=== PATIENT | female | born 1955 | race Caucasian/White ===

== ENCOUNTER 2016-12-14 22:30 | Inpatient (IN) | payer MEDICARE, MEDICAID ==
[~2016-12-14] VITALS: Ht 177.8 cm; Wt 66.2 kg
[2016-12-14 23:26] VITALS: BP 114/73
[2016-12-14] MEDS ORDERED: CEFTRIAXONE 1 G in IV DEXTROSE 5% 50 ML IV SCH (23:45)
[2016-12-14] MEDS ORDERED: LORAZEPAM 2 MG/1 ML VIAL IV PRN (23:45)
[2016-12-14] MEDS ORDERED: ZOLPIDEM 5 MG TABLET PO PRN (23:45)
[2016-12-14] MEDS ORDERED: MAGNESIUM HYDROXIDE 30 ML LIQUID UDC PO PRN (23:45)
[2016-12-14] MEDS ORDERED: ONDANSETRON 4 MG/2 ML VIAL IV PRN (23:45)
[2016-12-14] MEDS ORDERED: MORPHINE SULFATE 2 MG/1 ML DISP.SYRIN IV PRN (23:45)
[2016-12-15] MEDS ORDERED: ACETAMINOPHEN 325 MG TABLET ONE (01:37)
[2016-12-15] MEDS ORDERED: CEFTRIAXONE 1 G VIAL ONE (01:45)
[2016-12-15] MEDS: ACETAMINOPHEN 325 MG TABLET PO PRN ×2 (01:54→09:36)
[2016-12-15] MEDS: IV 1/2NS 1000 ML 1,000 ML IV PRN (01:55)
[2016-12-15] MEDS ORDERED: IBUPROFEN 400 MG TABLET PO PRN (03:30)
[2016-12-15] MEDS ORDERED: TRIH2TAB5 PO (03:35)
[2016-12-15] MEDS ORDERED: TRAZ300T2 PO (03:35)
[2016-12-15] MEDS ORDERED: ARIP30TA PO (03:35)
[2016-12-15] MEDS ORDERED: HALO5TAB12 PO (03:35)
[2016-12-15] MEDS ORDERED: DOCU-25 PO (03:35)
[2016-12-15] MEDS ORDERED: PIPERACILLIN/TAZOBACTAM/D5W 50 ML IV ONE (04:25)
[2016-12-15] MEDS: PIPERACILLIN/TAZOBACTAM/D5W 3.375 G in PREMIXED 1 EACH IV SCH ×4 (04:30→21:07)
[2016-12-15 04:57] LABS: EOSINOPHILS % (AUTO) 0.1 % (0.0-7.0); HEMOGLOBIN 9.5 g/dL (12.0-16.0); LYMPHOCYTES # (AUTO) 0.5 K/uL (0.8-4.8); LYMPHOCYTES % (AUTO) 2.4 % (20.5-51.5); MEAN CORPUSCULAR HEMOGLOBIN 28.1 uug (27.0-31.0); MEAN CORPUSCULAR HGB CONC 33 g/dL (32.0-37.0); MEAN CORPUSCULAR VOLUME 85.3 fL (81.0-99.0); MONOCYTES # (AUTO) 1.6 K/uL (0.1-1.30); MONOCYTES % (AUTO) 7.5 % (0.0-11.0); NEUTROPHILS # (AUTO) 18.8 K/uL (1.8-8.9); PLATELET COUNT (AUTO) 258 K/uL (150-450); RED CELL DISTRIBUTION WIDTH 12.5 % (11.5-14.5); WHITE BLOOD COUNT (AUTO) 20.9 K/uL (4.0-11.2)
[2016-12-15 05:21] LABS: THYROID STIMULATING HORMONE 0.685 mIU/mL (0.358-3.740)
[2016-12-15 06:22] VITALS: BP 106/62
[2016-12-15] MEDS: PANTOPRAZOLE SODIUM 40 MG TABLET.DR PO SCH (08:14)
[2016-12-15 08:50] LABS: ALBUMIN 2.3 g/dL (3.4-5.0); BILIRUBIN,TOTAL 0.3 mg/dL (0.2-1.0); CALCIUM 7.8 mg/dL (8.5-10.1); CREATININE 1.1 mg/dL (0.6-1.3); MAGNESIUM 1.7 mg/dL (1.8-2.4); PHOSPHOROUS 1.8 mg/dL (2.5-4.9); POTASSIUM 3.6 mmol/L (3.5-5.1); TOTAL PROTEIN, SERUM 5.7 g/dL (6.4-8.2)
[2016-12-15] MEDS ORDERED: VANCOMYCIN IV 1 G in PREMIXED 0 EACH IV ONE (10:00)
[2016-12-15 10:51] LABS: BAND % (MANUAL) 14 % (0-10); LYMPHOCYTES % (MANUAL) 2 % (20-40); MONOCYTES % (MANUAL) 5 % (2-10); NEUTROPHILS % (MANUAL) 79 % (42-75)
[2016-12-15 10:52] LABS: HYPOCHROMASIA 1+; PLATELET ESTIMATE ADEQUATE
[2016-12-15 10:53] LABS: TOXIC GRANULATION 1+
[2016-12-15 12:03] VITALS: BP 124/66
[2016-12-15] MEDS ORDERED: GUAIFENESIN/CODEINE 5 ML LIQUID UDC PO PRN (12:45)
[2016-12-15] MEDS: GUAIFENESIN SUGAR FREE 100 MG/5 ML UDC PO PRN ×2 (13:52→20:33)
[2016-12-15] MEDS ORDERED: NEUTRA PHOS PACKET PO ONE (15:15)
[2016-12-15] MEDS ORDERED: MAGNESIUM OXIDE 400 MG TABLET PO ONE (15:15)
[2016-12-15] MEDS: POTASSIUM PHOSPHATE MM 7.5 MMOL in IV DEXTROSE 5% 100 ML IV SCH ×2 (15:39→18:16)
[2016-12-15 16:00] VITALS: BP 121/74
[2016-12-15] MEDS: DOCUSATE SODIUM 100 MG CAPSULE PO SCH (20:33)
[2016-12-15] MEDS ORDERED: DOCUSATE SODIUM 250 MG CAPSULE PO SCH (21:00)
[2016-12-16 00:39] VITALS: BP 107/64
[2016-12-16] MEDS: IV 1/2NS 1000 ML 1,000 ML IV PRN ×2 (01:44→17:40)
[2016-12-16] MEDS: VANCOMYCIN IV 1 G in PREMIXED 0 EACH IV SCH ×2 (02:14→20:16)
[2016-12-16 04:40] VITALS: BP 116/73
[2016-12-16] MEDS: ACETAMINOPHEN 325 MG TABLET PO PRN ×3 (05:09→20:16)
[2016-12-16] MEDS: PIPERACILLIN/TAZOBACTAM/D5W 3.375 G in PREMIXED 1 EACH IV SCH ×3 (05:10→21:40)
[2016-12-16] MEDS: PANTOPRAZOLE SODIUM 40 MG TABLET.DR PO SCH (06:09)
[2016-12-16 07:53] LABS: EOSINOPHILS % (AUTO) 0.2 % (0.0-7.0); HEMATOCRIT 29.3 % (37.0-47.0); LYMPHOCYTES # (AUTO) 1.3 K/uL (0.8-4.8); LYMPHOCYTES % (AUTO) 6.9 % (20.5-51.5); MEAN CORPUSCULAR HEMOGLOBIN 29.4 uug (27.0-31.0); MEAN CORPUSCULAR HGB CONC 34 g/dL (32.0-37.0); MEAN CORPUSCULAR VOLUME 85.8 fL (81.0-99.0); MONOCYTES # (AUTO) 1.4 K/uL (0.1-1.30); MONOCYTES % (AUTO) 7.6 % (0.0-11.0); NEUTROPHILS # (AUTO) 15.6 K/uL (1.8-8.9); NEUTROPHILS % (AUTO) 85.3 % (38.5-71.5); PLATELET COUNT (AUTO) 264 K/uL (150-450); RED BLOOD CELL COUNT(AUTO) 3.41 MIL/uL (4.20-5.40); RED CELL DISTRIBUTION WIDTH 12.5 % (11.5-14.5); WHITE BLOOD COUNT (AUTO) 18.3 K/uL (4.0-11.2)
[2016-12-16 08:22] LABS: BILIRUBIN,TOTAL 0.6 mg/dL (0.2-1.0); CALCIUM 7.8 mg/dL (8.5-10.1); CREATININE 0.9 mg/dL (0.6-1.3); MAGNESIUM 1.7 mg/dL (1.8-2.4); PHOSPHOROUS 2.2 mg/dL (2.5-4.9); POTASSIUM 3.5 mmol/L (3.5-5.1); TOTAL PROTEIN, SERUM 5.5 g/dL (6.4-8.2)
[2016-12-16] MEDS ORDERED: MAGNESIUM OXIDE 400 MG TABLET PO ONE (10:30)
[2016-12-16] MEDS ORDERED: NEUTRA PHOS PACKET PO ONE (10:30)
[2016-12-16] MEDS: GUAIFENESIN SUGAR FREE 100 MG/5 ML UDC PO PRN (10:34)
[2016-12-16 16:01] VITALS: BP 115/70
[2016-12-16 20:00] VITALS: BP 112/64
[2016-12-16] MEDS: DOCUSATE SODIUM 100 MG CAPSULE PO SCH (20:16)
[2016-12-17 04:00] VITALS: BP 132/80
[2016-12-17] MEDS: ACETAMINOPHEN 325 MG TABLET PO PRN ×2 (04:26→20:28)
[2016-12-17] MEDS: PANTOPRAZOLE SODIUM 40 MG TABLET.DR PO SCH (06:02)
[2016-12-17] MEDS: PIPERACILLIN/TAZOBACTAM/D5W 3.375 G in PREMIXED 1 EACH IV SCH (06:03)
[2016-12-17 06:59] LABS: EOSINOPHILS % (AUTO) 0.1 % (0.0-7.0); HEMATOCRIT 27.9 % (37.0-47.0); HEMOGLOBIN 9.8 g/dL (12.0-16.0); LYMPHOCYTES # (AUTO) 1.4 K/uL (0.8-4.8); LYMPHOCYTES % (AUTO) 11.3 % (20.5-51.5); MEAN CORPUSCULAR HEMOGLOBIN 29.8 uug (27.0-31.0); MEAN CORPUSCULAR HGB CONC 35 g/dL (32.0-37.0); MEAN CORPUSCULAR VOLUME 84.5 fL (81.0-99.0); MONOCYTES # (AUTO) 0.8 K/uL (0.1-1.30); MONOCYTES % (AUTO) 6.8 % (0.0-11.0); NEUTROPHILS # (AUTO) 10.3 K/uL (1.8-8.9); NEUTROPHILS % (AUTO) 81.8 % (38.5-71.5); PLATELET COUNT (AUTO) 286 K/uL (150-450); RED CELL DISTRIBUTION WIDTH 12.3 % (11.5-14.5); WHITE BLOOD COUNT (AUTO) 12.5 K/uL (4.0-11.2)
[2016-12-17 07:39] LABS: ALBUMIN 1.8 g/dL (3.4-5.0); BILIRUBIN,TOTAL 0.4 mg/dL (0.2-1.0); CALCIUM 7.7 mg/dL (8.5-10.1); CREATININE 0.8 mg/dL (0.6-1.3); MAGNESIUM 1.4 mg/dL (1.8-2.4); PHOSPHOROUS 2.9 mg/dL (2.5-4.9); POTASSIUM 3.4 mmol/L (3.5-5.1); TOTAL PROTEIN, SERUM 5.2 g/dL (6.4-8.2)
[2016-12-17] MEDS: GUAIFENESIN SUGAR FREE 100 MG/5 ML UDC PO PRN ×2 (08:25→20:50)
[2016-12-17] MEDS ORDERED: MAGNESIUM OXIDE 400 MG TABLET PO ONE (09:15)
[2016-12-17] MEDS ORDERED: POTASSIUM CHLORIDE 20 MEQ TAB.PRT.SR PO ONE (09:15)
[2016-12-17] MEDS: IV 1/2NS 1000 ML 1,000 ML IV PRN (09:45)
[2016-12-17 11:06] VITALS: BP 120/83
[2016-12-17] MEDS: AMPICILLIN IV 1 G in IV NORMAL SALINE 50 ML IV SCH ×2 (13:42→21:58)
[2016-12-17 15:48] VITALS: BP 116/74
[2016-12-17] MEDS ORDERED: TRIHEXYPHENIDYL HCL 2 MG TABLET PO SCH (17:00)
[2016-12-17] MEDS ORDERED: HALOPERIDOL 5 MG TABLET PO SCH (17:00)
[2016-12-17] MEDS ORDERED: HALO10TA13 PO (17:23)
[2016-12-17] MEDS ORDERED: ARIPIPRAZOLE PO SCH (18:00)
[2016-12-17 20:00] VITALS: BP 115/66
[2016-12-17] MEDS: TRIHEXYPHENIDYL HCL 2 MG TABLET PO SCH (20:26)
[2016-12-17] MEDS: ARIPIPRAZOLE 10 MG TABLET PO SCH ×2 (20:26→20:38)
[2016-12-17] MEDS: DOCUSATE SODIUM 100 MG CAPSULE PO SCH (20:27)
[2016-12-17] MEDS: TRAZODONE 100 MG TABLET PO SCH ×2 (20:27→20:38)
[2016-12-17] MEDS: HALOPERIDOL 5 MG TABLET PO SCH ×2 (20:28→20:38)
[2016-12-18] MEDS: AMPICILLIN IV 1 G in IV NORMAL SALINE 50 ML IV SCH ×3 (05:58→23:08)
[2016-12-18 06:00] VITALS: BP 124/86
[2016-12-18] MEDS: PANTOPRAZOLE SODIUM 40 MG TABLET.DR PO SCH (06:01)
[2016-12-18 07:32] LABS: IRON, SERUM 38 ug/dL (50-175)
[2016-12-18 08:00] VITALS: BP 118/74
[2016-12-18] MEDS: HALOPERIDOL 5 MG TABLET PO SCH ×3 (09:00→20:39)
[2016-12-18] MEDS: TRIHEXYPHENIDYL HCL 2 MG TABLET PO SCH ×3 (09:00→20:58)
[2016-12-18 10:10] LABS: CALCIUM 8.4 mg/dL (8.5-10.1); CREATININE 0.6 mg/dL (0.6-1.3); MAGNESIUM 1.5 mg/dL (1.8-2.4); PHOSPHOROUS 3.7 mg/dL (2.5-4.9)
[2016-12-18 12:10] VITALS: BP 127/81
[2016-12-18 16:05] VITALS: BP 129/90
[2016-12-18] MEDS: ACETAMINOPHEN 325 MG TABLET PO PRN (16:20)
[2016-12-18 20:00] VITALS: BP 136/84
[2016-12-18] MEDS: ARIPIPRAZOLE 10 MG TABLET PO SCH (20:38)
[2016-12-18] MEDS: TRAZODONE 100 MG TABLET PO SCH (20:38)
[2016-12-18] MEDS: DOCUSATE SODIUM 100 MG CAPSULE PO SCH ×2 (20:38→20:52)
[2016-12-18] MEDS: GUAIFENESIN SUGAR FREE 100 MG/5 ML UDC PO PRN (23:15)
[2016-12-19] MEDS: AMPICILLIN IV 1 G in IV NORMAL SALINE 50 ML IV SCH ×3 (05:59→21:17)
[2016-12-19 06:03] VITALS: BP 110/72
[2016-12-19] MEDS: PANTOPRAZOLE SODIUM 40 MG TABLET.DR PO SCH (06:04)
[2016-12-19] MEDS: ACETAMINOPHEN 325 MG TABLET PO PRN ×2 (06:04→20:30)
[2016-12-19 06:46] LABS: BASOPHILS % (AUTO) 0.6 % (0.0-2.0); EOSINOPHILS % (AUTO) 0.2 % (0.0-7.0); HEMATOCRIT 29.4 % (37.0-47.0); HEMOGLOBIN 9.9 g/dL (12.0-16.0); LYMPHOCYTES # (AUTO) 1.8 K/uL (0.8-4.8); LYMPHOCYTES % (AUTO) 26.2 % (20.5-51.5); MEAN CORPUSCULAR HEMOGLOBIN 28.6 uug (27.0-31.0); MEAN CORPUSCULAR HGB CONC 34 g/dL (32.0-37.0); MONOCYTES # (AUTO) 0.6 K/uL (0.1-1.30); MONOCYTES % (AUTO) 9.1 % (0.0-11.0); NEUTROPHILS # (AUTO) 4.5 K/uL (1.8-8.9); NEUTROPHILS % (AUTO) 63.9 % (38.5-71.5); PLATELET COUNT (AUTO) 424 K/uL (150-450); RED BLOOD CELL COUNT(AUTO) 3.46 MIL/uL (4.20-5.40); RED CELL DISTRIBUTION WIDTH 12.5 % (11.5-14.5); WHITE BLOOD COUNT (AUTO) 6.9 K/uL (4.0-11.2)
[2016-12-19 07:08] LABS: ALBUMIN 2.1 g/dL (3.4-5.0); BILIRUBIN,TOTAL 0.4 mg/dL (0.2-1.0); CALCIUM 8.6 mg/dL (8.5-10.1); CREATININE 0.7 mg/dL (0.6-1.3); MAGNESIUM 1.5 mg/dL (1.8-2.4); PHOSPHOROUS 5.1 mg/dL (2.5-4.9); POTASSIUM 4.3 mmol/L (3.5-5.1); TOTAL PROTEIN, SERUM 5.5 g/dL (6.4-8.2)
[2016-12-19 08:00] VITALS: BP 104/70
[2016-12-19] MEDS: HALOPERIDOL 5 MG TABLET PO SCH ×3 (08:26→20:30)
[2016-12-19] MEDS: TRIHEXYPHENIDYL HCL 2 MG TABLET PO SCH ×3 (08:26→20:30)
[2016-12-19] MEDS ORDERED: MAGNESIUM OXIDE 400 MG TABLET PO ONE (11:00)
[2016-12-19 11:44] VITALS: BP 99/62
[2016-12-19 15:45] VITALS: BP 106/61
[2016-12-19 20:15] VITALS: BP 119/82
[2016-12-19] MEDS: DOCUSATE SODIUM 100 MG CAPSULE PO SCH (20:29)
[2016-12-19] MEDS: ARIPIPRAZOLE 10 MG TABLET PO SCH (20:30)
[2016-12-19] MEDS: TRAZODONE 100 MG TABLET PO SCH (20:30)
[2016-12-19] MEDS ORDERED: PANT40TA2 PO (21:20)
[2016-12-19] MEDS ORDERED: AMPI500C11 PO (21:20)
[2016-12-19] MEDS ORDERED: ACID1TAB4 PO (21:21)
[2016-12-20] MEDS ORDERED: LACT1TAB12 PO (00:31)
[2016-12-20] MEDS ORDERED: PANT40TA4 PO (00:31)
[2016-12-20] MEDS ORDERED: AMPI500C11 PO (00:31)
== END 2016-12-19 23:00 | DRG 871 ==
LOC: MED 22:30
PROVIDERS: ADMIT Internal Medicine; ATTEND Internal Medicine
DX: A41.9 Sepsis, unspecified organism (principal); N17.0 Acute kidney failure with tubular necrosis; E43 Unspecified severe protein-calorie malnutrition; N10 Acute pyelonephritis; N13.4 Hydroureter; D68.59 Other primary thrombophilia; K92.1 Melena; N13.6 Pyonephrosis; B95.2 Enterococcus as the cause of diseases classified elsewhere; Z87.891 Personal history of nicotine dependence; E86.0 Dehydration; Z68.20 Body mass index [BMI] 20.0-20.9, adult; J42 Unspecified chronic bronchitis; F43.10 Post-traumatic stress disorder, unspecified; F25.1 Schizoaffective disorder, depressive type; N20.0 Calculus of kidney; I10 Essential (primary) hypertension; Z74.09 Other reduced mobility; R16.2 Hepatomegaly with splenomegaly, not elsewhere classified; M50.30 Other cervical disc degeneration, unspecified cervical region; M51.36 Other intervertebral disc degeneration, lumbar region; Z98.1 Arthrodesis status; L90.5 Scar conditions and fibrosis of skin; T20.0 Burn of unspecified degree of head, face, and neck; X08.8XXS Exposure to other specified smoke, fire and flames, sequela; K59.09 Other constipation; D50.0 Iron deficiency anemia secondary to blood loss (chronic); F60.3 Borderline personality disorder; Z66 Do not resuscitate
CPT/HCPCS: 36415; 71010; 82378; 83550; 83735; 84100; 84443; 85025; 87040; 87077; 87086; 97001; 97116; 97530; A4663; J0290; J0696; J2405; J2543; J3370; J3490; J7030; J7040; J7060

== ENCOUNTER 2016-12-19 23:21 | Inpatient (IN) | payer MEDICARE, MEDICAID ==
[~2016-12-19] VITALS: Ht 177.8 cm; Wt 67.1 kg
[~2016-12-19 23:21] MED LIST: ACID1TAB4 PO; AMPI500C11 PO; ARIP30TA PO; DOCU-25 PO; HALO10TA13 PO; HALO5TAB12 PO; PANT40TA2 PO; TRAZ300T2 PO; TRIH2TAB5 PO
[2016-12-19 23:33] VITALS: BP 125/84
[2016-12-19] MEDS ORDERED: TEMAZEPAM 7.5 MG CAPSULE PO PRN (23:45)
[2016-12-19] MEDS ORDERED: MAG HYDROX/AL HYDROX/SIMETH 30 ML LIQUID UDC PO PRN (23:45)
[2016-12-19] MEDS ORDERED: LORAZEPAM 1 MG TABLET PO PRN (23:45)
[2016-12-19] MEDS ORDERED: MAGNESIUM HYDROXIDE 30 ML LIQUID UDC PO PRN (23:45)
[2016-12-20] MEDS ORDERED: LACT1TAB12 PO (00:31)
[2016-12-20] MEDS ORDERED: PANT40TA4 PO (00:31)
[2016-12-20] MEDS ORDERED: AMPI500C11 PO (00:31)
[2016-12-20 07:09] LABS: CALCIUM 9.6 mg/dL (8.5-10.1); CREATININE 0.9 mg/dL (0.6-1.3); MAGNESIUM 1.6 mg/dL (1.8-2.4); POTASSIUM 4.5 mmol/L (3.5-5.1)
[2016-12-20 07:30] VITALS: BP 128/87
[2016-12-20 16:00] VITALS: BP 114/78
[2016-12-20] MEDS ORDERED: MAGNESIUM OXIDE 400 MG TABLET PO ONE (17:15)
[2016-12-20] MEDS ORDERED: AMPICILLIN 500 MG CAPSULE PO SCH (19:45)
[2016-12-20 20:03] VITALS: BP 119/79
[2016-12-20] MEDS: DOCUSATE SODIUM 100 MG CAPSULE PO SCH (21:00)
[2016-12-20] MEDS ORDERED: TRIHEXYPHENIDYL HCL 2 MG TABLET PO SCH (21:00)
[2016-12-20] MEDS: AMPICILLIN 500 MG CAPSULE PO SCH (21:02)
[2016-12-20] MEDS: ARIPIPRAZOLE 10 MG TABLET PO SCH (21:15)
[2016-12-20] MEDS ORDERED: HALOPERIDOL 2 MG TABLET PO SCH (21:15)
[2016-12-20] MEDS: TRAZODONE 100 MG TABLET PO SCH (21:15)
[2016-12-21] MEDS: AMPICILLIN 500 MG CAPSULE PO SCH ×3 (05:52→22:18)
[2016-12-21] MEDS: PANTOPRAZOLE SODIUM 40 MG TABLET.DR PO SCH (05:53)
[2016-12-21 07:30] VITALS: BP 128/77
[2016-12-21] MEDS: HALOPERIDOL 5 MG TABLET PO SCH ×3 (09:00→21:00)
[2016-12-21] MEDS: TRIHEXYPHENIDYL HCL 2 MG TABLET PO SCH ×3 (09:00→21:00)
[2016-12-21] MEDS ORDERED: PANTOPRAZOLE SODIUM 40 MG TABLET.DR PO SCH (09:00)
[2016-12-21] MEDS ORDERED: HALOPERIDOL 5 MG TABLET PO SCH (09:00)
[2016-12-21] MEDS ORDERED: Medication Not On Formulary EA (Lactobacillus Acidophilus (Acidophilus) 1 EACH) PO SCH (09:00)
[2016-12-21] MEDS: ACIDOPHILUS/BULGARICUS CHEW TAB PO SCH ×2 (09:57→17:05)
[2016-12-21 15:53] VITALS: BP 103/72
[2016-12-21] MEDS ORDERED: ARIPIPRAZOLE PO SCH (18:00)
[2016-12-21 20:38] VITALS: BP 107/62
[2016-12-21] MEDS: TRAZODONE 100 MG TABLET PO SCH (21:00)
[2016-12-21] MEDS: DOCUSATE SODIUM 100 MG CAPSULE PO SCH (21:00)
[2016-12-21] MEDS: ARIPIPRAZOLE 10 MG TABLET PO SCH (21:00)
[2016-12-22] MEDS: AMPICILLIN 500 MG CAPSULE PO SCH ×3 (06:23→21:50)
[2016-12-22] MEDS: PANTOPRAZOLE SODIUM 40 MG TABLET.DR PO SCH (06:32)
[2016-12-22 08:00] VITALS: BP 94/60
[2016-12-22] MEDS: TRIHEXYPHENIDYL HCL 2 MG TABLET PO SCH ×3 (09:00→21:00)
[2016-12-22] MEDS: HALOPERIDOL 5 MG TABLET PO SCH ×3 (09:00→21:00)
[2016-12-22] MEDS: ACIDOPHILUS/BULGARICUS CHEW TAB PO SCH ×2 (09:20→17:14)
[2016-12-22 15:28] VITALS: BP 91/57
[2016-12-22 20:18] VITALS: BP 109/70
[2016-12-22] MEDS: DOCUSATE SODIUM 100 MG CAPSULE PO SCH (21:00)
[2016-12-22] MEDS: TRAZODONE 100 MG TABLET PO SCH (21:00)
[2016-12-22] MEDS: ARIPIPRAZOLE 10 MG TABLET PO SCH (21:00)
[2016-12-23] MEDS: AMPICILLIN 500 MG CAPSULE PO SCH ×3 (06:25→21:09)
[2016-12-23] MEDS: PANTOPRAZOLE SODIUM 40 MG TABLET.DR PO SCH (06:30)
[2016-12-23 07:30] VITALS: BP 105/67
[2016-12-23] MEDS: TRIHEXYPHENIDYL HCL 2 MG TABLET PO SCH ×3 (09:00→21:00)
[2016-12-23] MEDS: HALOPERIDOL 5 MG TABLET PO SCH ×3 (09:00→21:00)
[2016-12-23] MEDS: ACIDOPHILUS/BULGARICUS CHEW TAB PO SCH ×2 (09:33→17:10)
[2016-12-23 15:07] VITALS: BP 100/63
[2016-12-23 20:27] VITALS: BP 122/74
[2016-12-23] MEDS: ARIPIPRAZOLE 10 MG TABLET PO SCH (21:00)
[2016-12-23] MEDS: DOCUSATE SODIUM 100 MG CAPSULE PO SCH (21:00)
[2016-12-23] MEDS: TRAZODONE 100 MG TABLET PO SCH (21:00)
[2016-12-24] MEDS: AMPICILLIN 500 MG CAPSULE PO SCH ×3 (05:36→21:46)
[2016-12-24] MEDS: PANTOPRAZOLE SODIUM 40 MG TABLET.DR PO SCH (06:35)
[2016-12-24 07:30] VITALS: BP 110/72
[2016-12-24] MEDS: ACIDOPHILUS/BULGARICUS CHEW TAB PO SCH ×2 (09:00→17:41)
[2016-12-24] MEDS: HALOPERIDOL 5 MG TABLET PO SCH ×3 (09:00→20:36)
[2016-12-24] MEDS: TRIHEXYPHENIDYL HCL 2 MG TABLET PO SCH ×3 (09:00→20:36)
[2016-12-24] MEDS: ACETAMINOPHEN 325 MG TABLET PO PRN (09:03)
[2016-12-24 15:28] VITALS: BP 97/58
[2016-12-24 19:54] VITALS: BP 106/66
[2016-12-24] MEDS: ARIPIPRAZOLE 10 MG TABLET PO SCH (20:35)
[2016-12-24] MEDS: DOCUSATE SODIUM 100 MG CAPSULE PO SCH (20:36)
[2016-12-24] MEDS: TRAZODONE 100 MG TABLET PO SCH (20:36)
[2016-12-25] MEDS: AMPICILLIN 500 MG CAPSULE PO SCH ×3 (05:17→21:31)
[2016-12-25] MEDS: PANTOPRAZOLE SODIUM 40 MG TABLET.DR PO SCH (06:12)
[2016-12-25 07:04] LABS: LYMPHOCYTES # (AUTO) 2.8 K/uL (0.8-4.8); MONOCYTES # (AUTO) 0.6 K/uL (0.1-1.30)
[2016-12-25 07:12] LABS: BASOPHILS % (AUTO) 0.2 % (0.0-2.0); EOSINOPHILS % (AUTO) 0.1 % (0.0-7.0); HEMATOCRIT 33.3 % (37.0-47.0); HEMOGLOBIN 11.5 g/dL (12.0-16.0); LYMPHOCYTES % (AUTO) 35.4 % (20.5-51.5); MEAN CORPUSCULAR HEMOGLOBIN 29.2 uug (27.0-31.0); MEAN CORPUSCULAR HGB CONC 34 g/dL (32.0-37.0); MEAN CORPUSCULAR VOLUME 84.9 fL (81.0-99.0); NEUTROPHILS # (AUTO) 4.5 K/uL (1.8-8.9); NEUTROPHILS % (AUTO) 57.3 % (38.5-71.5); WHITE BLOOD COUNT (AUTO) 7.9 K/uL (4.0-11.2)
[2016-12-25 07:18] LABS: PLATELET COUNT (AUTO) 599 K/uL (150-450); RED BLOOD CELL COUNT(AUTO) 3.93 MIL/uL (4.20-5.40)
[2016-12-25 07:27] LABS: ALBUMIN 3.1 g/dL (3.4-5.0); BILIRUBIN,TOTAL 0.4 mg/dL (0.2-1.0); CALCIUM 9.4 mg/dL (8.5-10.1); MAGNESIUM 2.1 mg/dL (1.8-2.4); PHOSPHOROUS 4.1 mg/dL (2.5-4.9)
[2016-12-25 07:51] VITALS: BP 110/72
[2016-12-25] MEDS: HALOPERIDOL 5 MG TABLET PO SCH ×4 (08:27→20:05)
[2016-12-25] MEDS: ACIDOPHILUS/BULGARICUS CHEW TAB PO SCH ×2 (08:27→16:55)
[2016-12-25] MEDS: TRIHEXYPHENIDYL HCL 2 MG TABLET PO SCH ×4 (08:27→20:04)
[2016-12-25 15:46] VITALS: BP 93/56
[2016-12-25] MEDS: ARIPIPRAZOLE 10 MG TABLET PO SCH (20:04)
[2016-12-25] MEDS: DOCUSATE SODIUM 100 MG CAPSULE PO SCH (20:05)
[2016-12-25] MEDS: TRAZODONE 100 MG TABLET PO SCH (20:05)
[2016-12-25 20:18] VITALS: BP 121/72
[2016-12-26] MEDS: AMPICILLIN 500 MG CAPSULE PO SCH ×2 (06:28→13:14)
[2016-12-26] MEDS: PANTOPRAZOLE SODIUM 40 MG TABLET.DR PO SCH (06:28)
[2016-12-26 07:55] VITALS: BP 112/75
[2016-12-26] MEDS: HALOPERIDOL 5 MG TABLET PO SCH ×2 (08:09→12:11)
[2016-12-26] MEDS: ACIDOPHILUS/BULGARICUS CHEW TAB PO SCH ×2 (08:09→17:00)
[2016-12-26] MEDS: TRIHEXYPHENIDYL HCL 2 MG TABLET PO SCH ×2 (08:10→12:11)
[2016-12-26] MEDS: ACETAMINOPHEN 325 MG TABLET PO PRN (14:07)
[2016-12-26 15:30] VITALS: BP 114/76
== END 2016-12-26 18:41 | disposition home or self-care (01) | DRG 885 ==
LOC: GPS 23:21
PROVIDERS: ADMIT Psychiatry & Neurology Psychiatry; ATTEND Internal Medicine
DX: F25.9 Schizoaffective disorder, unspecified (principal); E43 Unspecified severe protein-calorie malnutrition; F29 Unspecified psychosis not due to a substance or known physiological condition; Z73.6 Limitation of activities due to disability; F32.9 Major depressive disorder, single episode, unspecified; F43.10 Post-traumatic stress disorder, unspecified; F60.3 Borderline personality disorder; I10 Essential (primary) hypertension; J42 Unspecified chronic bronchitis; Z87.891 Personal history of nicotine dependence; Z98.1 Arthrodesis status; K59.00 Constipation, unspecified; R16.2 Hepatomegaly with splenomegaly, not elsewhere classified; Z68.21 Body mass index [BMI] 21.0-21.9, adult
CPT/HCPCS: 36415; 83735; 84100; 85025; J0290